=== PATIENT | male | born 1940 | race Caucasian/White ===

== ENCOUNTER 2024-07-03 16:25 | Emergency (ER) | payer MEDICARE, SELFPAY ==
[2024-07-03 16:37] VITALS: BP 133/81; PULSE 85; RESP 18; TEMP 36.7; O2SAT 96
[2024-07-03] MEDS: CELLULOSE OXIDIZED 2 x 14 INCH 1 PKT XX (16:49)
--- NOTE | 2024-07-03 17:05 | ED.GENADULT ---
HPI - General Adult General Chief complaint: Skin/Abscess/Foreign Body Stated complaint: LT Leg injury History of Present Illness HPI narrative: Torsten Mary Is an 83-year-old male with past medical history of COPD liver cancer who is on Keytruda which can act similar as a blood thinner. He presents today after picking a scab on his left upper thigh the head is about a 0.5 cm in size. He is kept putting ranges on it but it continues to ooze through the bandages and he can not seem to get this out bleeding. Area is slowly oozing blood on arrival here Related Data Home Medications ?Medication ?Instructions ?Recorded ?Confirmed ?Last Taken ?Type albuterol 90 mcg/actuation aerosol mcg inhalation 07/03/24 Unknown History inhaler aspirin 81 mg tablet,delayed 81 mg PO DAILY 07/03/24 Unknown History release (Adult Low Dose Aspirin) atorvastatin 80 mg tablet mg 07/03/24 Unknown History calcium 500 mg (as 1 tablet PO DAILY 07/03/24 Unknown History carbonate)-vitamin D3 3.125 mcg (125 unit) tablet ezetimibe 10 mg tablet mg 07/03/24 Unknown History ferrous sulfate 325 mg (65 mg mg 07/03/24 Unknown History iron) tablet fluticasone furoate 200 inhalation 07/03/24 Unknown History mcg-vilanterol 25 mcg/dose inhalation powder (Breo Ellipta) furosemide 40 mg tablet mg 07/03/24 Unknown History metoprolol succinate 25 mg mg PO 07/03/24 Unknown History tablet,extended release 24 hr pembrolizumab 25 mg/mL intravenous 200 mg IV ONCE 07/03/24 Unknown History solution (Keytruda) Allergies Allergy/AdvReac Type Severity Reaction Status Date / Time No Known Allergies Allergy Verified 07/03/24 16:38 Review of Systems Review of Systems: All systems reviewed & are unremarkable except as noted in HPI and below Exam Narrative: GENERAL: Well-appearing, well-nourished, and in no acute distress. HEAD: Normocephalic, atraumatic. EYES: PERRLA and EOMI. ENT: Nares clear, no rhinorrhea or epistaxis. Mucous membranes moist. Oropharynx without tonsillar hypertrophy exudate or other lesions. Bilateral TMs pearly figueroa nonbulging NECK: Supple. No adenopathy or masses. No carotid bruits or JVD CHEST: Clear to auscultation. No respiratory distress. No wheezes rales or rhonchi HEART: Regular rate and rhythm. No murmur heard. Normal peripheral pulses. ABDOMEN: Soft, nontender, nondistended, normal active bowel sounds. EXTREMITIES: Normal range of motion. No edema. SKIN: less then 0.5 cm scab that was picked is oozing blood to the left anterior thigh. NEURO: No focal deficits. Alert and oriented x3. PSYCH: Normal mood and affect. Course Course Level of Care: Express Care Visit Vital Signs Vital signs: Vital Signs Temperature 36.7 C 07/03/24 16:37 Pulse Rate 85 07/03/24 16:37 Respiratory Rate 18 07/03/24 16:37 Blood Pressure 133/81 07/03/24 16:37 Pulse Oximetry 96 07/03/24 16:37 Oxygen Delivery Room Air 07/03/24 16:37 Temperature 36.7 C 07/03/24 16:37 Pulse Rate 85 07/03/24 16:37 Respiratory Rate 18 07/03/24 16:37 Blood Pressure 133/81 07/03/24 16:37 Pulse Oximetry 96 07/03/24 16:37 Oxygen Delivery Room Air 07/03/24 16:37 Medical Decision Making MDM Narrative Medical decision making narrative: 83 yo with presents with oozing blood from a scab to his left upper thigh. Area cleansed wtih cleanser then surgicel placed / telfa/ gauze and pressure held for 10 mins. Removed pressure to wait for any more bleeding, no active bleeding noted/ area wrapped with more gauze and Kerlix Encouraged pt to keep dressing on until tomorrow and he can allow the Surgicel to fall off or may be removed by getting wet. Close follow up with PCP Return precautions discussed Medical Records Medical records reviewed: Yes I reviewed the external patient's medical records. Vital Signs Vital Signs: Vital Signs Temperature 36.7 C 07/03/24 16:37 Pulse Rate 85 07/03/24 16:37 Respiratory Rate 18 07/03/24 16:37 Blood Pressure 133/81 07/03/24 16:37 Pulse Oximetry 96 07/03/24 16:37 Oxygen Delivery Room Air 07/03/24 16:37 Temperature 36.7 C 07/03/24 16:37 Pulse Rate 85 07/03/24 16:37 Respiratory Rate 18 07/03/24 16:37 Blood Pressure 133/81 07/03/24 16:37 Pulse Oximetry 96 07/03/24 16:37 Oxygen Delivery Room Air 07/03/24 16:37 Vitals reviewed Discharge Plan Discharge Clinical Impression: Scab, Visit for wound care Patient Disposition: Home, Self-Care Condition: Stable Instructions: Antibiotic Form Additional Instructions: Keep this bandage on until tomorrow The Surgicel may be removed in a few days with water / do not pick at it as this might make it come off too early Follow up with you PCP in 1 week Avoid picking at your scabs, if they are itching please use lotion Return for any other concerns/ worsening symptoms. Patient Language: Kiswahili Prescriptions: No Action atorvastatin 80 mg tablet aspirin [Adult Low Dose Aspirin] 81 mg tablet,delayed release (DR/EC) 81 mg PO DAILY fluticasone furoate-vilanterol [Breo Ellipta] 200-25 mcg/dose blister with device INHALATION furosemide 40 mg tablet ferrous sulfate 325 mg (65 mg iron) tablet metoprolol succinate 25 mg tablet extended release 24 hr PO ezetimibe 10 mg tablet albuterol 90 mcg/actuation aerosol inhalation Keytruda 25 mg/mL solution 200 mg IV ONCE Rx Instructions: administer over 30 mins calcium carbonate-vitamin D3 500 mg-3.125 mcg (125 unit) tablet 1 tablet PO DAILY Follow-up/Referrals: Autumn,Lucius Espinoza MD [Primary Care Provider] - 1 Week Time of Disposition: 17:30
== END 2024-07-03 17:26 | disposition home or self-care (01) ==
PROVIDERS: Emergency Provider Nurse Practitioner Family; PCP Family Medicine
DX: S71.102A Unspecified open wound, left thigh, initial encounter (principal); X58.XXXA Exposure to other specified factors, initial encounter; J44.9 Chronic obstructive pulmonary disease, unspecified; C22.8 Malignant neoplasm of liver, primary, unspecified as to type; Z79.82 Long term (current) use of aspirin; Z79.620 Long term (current) use of immunosuppressive biologic
CPT/HCPCS: 99212; G0463